=== PATIENT | female | born 1955 | race Caucasian/White ===

== ENCOUNTER 2017-07-12 12:47 | Emergency (ER) | payer OTHER ==
[2017-07-12 13:17] VITALS: BP 132/62; PULSE 93; RESP 16; TEMP 97.5
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
--- NOTE | 2017-07-12 14:14 | XR ---
EXAMINATION TYPE: XR ribs LT , 4 VIEWS DATE OF EXAM ORDERED: 07/12/2017 HISTORY: Pain. COMPARISON: None. FINDINGS: No displaced rib fracture is identified. The underlying lung appears unremarkable. There i s no evidence of pneumothorax. IMPRESSION: I DO NOT IDENTIFY A DISPLACED RIB FRACTURE AT THIS TIME.
== END 2017-07-12 14:05 | disposition home or self-care (01) ==
LOC: EC 12:47
DX: S20.212A Contusion of left front wall of thorax, initial encounter (principal); F17.200 Nicotine dependence, unspecified, uncomplicated; Z88.0 Allergy status to penicillin; V48.5XXA Car driver injured in noncollision transport accident in traffic accident, initial encounter; Y92.096 Garden or yard of other non-institutional residence as the place of occurrence of the external cause
CPT/HCPCS: 99283

== ENCOUNTER → 2020-04-14 | Outpatient (CLI) | payer OTHER ==
--- NOTE | 2020-04-14 15:14 | US ---
EXAMINATION TYPE: US duplex aorta DATE OF EXAM: 04/14/2020 COMPARISON: NONE CLINICAL HISTORY: R10.9 Abdomen pain. EXAM MEASUREMENTS: Abdominal Aorta: Proximal: 1.8 x 2.1 x 1.9 cm Mid: 1.7 x 1.6 x 1.4 cm Distal: 1.8 x 1.7 x 2.0 cm Bifurcation: Right: 0.7 x 0.7 x 0.8 cm Left: 0.7 x 0.6 x 0.9 cm No sonographic evidence for AAA on this exam. Atherosclerotic changes IMPRESSION: 1. No suspicious aneurysmal dilatation abdominal aorta
== END | disposition home or self-care (01) ==
LOC: RADUSWWP 14:31
PROVIDERS: ATTEND Family Medicine
DX: R10.9 Unspecified abdominal pain (principal)
CPT/HCPCS: 93979

== ENCOUNTER 2020-04-22 08:56 | Emergency (ER) | payer OTHER ==
[2020-04-22 09:05] VITALS: RESP 18
[2020-04-22] MEDS ORDERED: FAMOTIDINE 20 MG/2 ML VIAL IV STA (09:23)
[2020-04-22] MEDS ORDERED: ONDANSETRON 4 MG/2 ML VIAL IVP STA (09:23)
[2020-04-22] MEDS ORDERED: SODIUM CHLORIDE 0.9% 1,000 ML IV STA (09:23)
[2020-04-22] MEDS ORDERED: DICYCLOMINE 10 MG/ML 2 ML AMP IM STA (09:23)
--- NOTE | 2020-04-22 09:26 | ED ---
General Adult HPI - General Chief complaint: Abdominal Pain Stated complaint: abd pain Time Seen by Provider: 04/22/20 09:05 Source: patient, RN notes reviewed Mode of arrival: ambulatory Limitations: no limitations - History of Present Illness Initial comments: Patient is a pleasant 64-year-old female presenting to the emergency department complaints of abdominal discomfort. Onset of symptoms was a couple of weeks ago. She does have progressively worsened. Symptoms are at times positional. Discomfort is now more upper abdomen. Previously it had been also lower abdomen. Patient has decreased appetite and some nausea. No vomiting. Some decreased amount of bowel movements however does not feel constipated and bowel movements have been soft. Patient believes this is from decreased oral intake. No fevers. No urinary symptoms. Symptoms seem a little bit better when standing upright and a little bit worse with lying down. Food does not seem to make symptoms worse. No history of similar symptoms previous see. Patient did see her primary care physician and did have the ultrasound done of her aorta which was reported to her as normal. - Related Data Home Medications Medication Instructions Recorded Confirmed Atorvastatin Calcium [Lipitor] 80 mg PO HS 04/22/20 04/22/20 Omeprazole 20 mg PO DAILY 04/22/20 04/22/20 hydroCHLOROthiazide [Hydrodiuril] 12.5 mg PO DAILY 04/22/20 04/22/20 lisinopriL [Zestril] 10 mg PO DAILY 04/22/20 04/22/20 Previous Rx's Medication Instructions Recorded Metoclopramide HCl [Reglan] 10 mg PO Q6HR PRN #15 tablet 04/22/20 Allergies Allergy/AdvReac Type Severity Reaction Status Date / Time Penicillins Allergy Unknown Verified 04/22/20 10:31 aspirin AdvReac Nausea & Verified 04/22/20 10:31 Vomiting Review of Systems ROS Statement: Those systems with pertinent positive or pertinent negative responses have been documented in the HPI. ROS Other: All systems not noted in ROS Statement are negative. Constitutional: Denies: fever Eyes: Denies: eye pain ENT: Denies: ear pain Respiratory: Denies: cough, dyspnea Cardiovascular: Denies: chest pain Endocrine: Denies: fatigue Gastrointestinal: Reports: abdominal pain. Denies: vomiting, diarrhea Genitourinary: Denies: dysuria Musculoskeletal: Denies: back pain Skin: Denies: rash Neurological: Denies: weakness Past Medical History Past Medical History: Hyperlipidemia, Hypertension History of Any Multi-Drug Resistant Organisms: None Reported Past Surgical History: No Surgical Hx Reported Past Psychological History: Anxiety, Depression Smoking Status: Current every day smoker Past Alcohol Use History: None Reported Past Drug Use History: None Reported General Exam Limitations: no limitations General appearance: alert, in no apparent distress Head exam: Present: normocephalic Eye exam: Present: normal appearance Neck exam: Present: normal inspection Respiratory exam: Present: normal lung sounds bilaterally Cardiovascular Exam: Present: regular rate, normal rhythm Expanded Peripheral pulses: 2+: Posterior Tibialis (R), Posterior Tibialis (L) GI/Abdominal exam: Present: soft, tenderness (Mild to moderate tenderness of upper abdomen), normal bowel sounds. Absent: distended, guarding, rebound, rigid, pulsatile mass Extremities exam: Present: normal inspection. Absent: pedal edema, calf tenderness Neurological exam: Present: alert Psychiatric exam: Present: normal affect, normal mood Skin exam: Present: normal color Course Vital Signs 04/22/20 09:00 Temperature 97.5 F L Pulse Rate 97 Respiratory 18 Rate Blood Pressure 152/82 O2 Sat by Pulse 98 Oximetry Medical Decision Making - Medical Decision Making Patient reevaluated and improved following medications. Patient updated on results and need for follow-up. - Lab Data Result diagrams: 04/22/20 09:44 04/22/20 09:44 Lab Results 04/22/20 04/22/20 04/22/20 Range/Units 09:44 09:44 09:44 WBC 6.1 (3.8-10.6) k/uL RBC 4.86 (3.80-5.40) m/uL Hgb 14.6 (11.4-16.0) gm/dL Hct 45.0 (34.0-46.0) % MCV 92.8 (80.0-100.0) fL MCH 30.0 (25.0-35.0) pg MCHC 32.3 (31.0-37.0) g/dL RDW 13.0 (11.5-15.5) % Plt Count 224 (150-450) k/uL Neutrophils % 71 % Lymphocytes % 19 % Monocytes % 7 % Eosinophils % 1 % Basophils % 1 % Neutrophils # 4.3 (1.3-7.7) k/uL Lymphocytes # 1.2 (1.0-4.8) k/uL Monocytes # 0.4 (0-1.0) k/uL Eosinophils # 0.0 (0-0.7) k/uL Basophils # 0.0 (0-0.2) k/uL PT 10.2 (9.0-12.0) sec INR 1.0 (<1.2) APTT 25.1 (22.0-30.0) sec Sodium (137-145) mmol/L Potassium (3.5-5.1) mmol/L Chloride (98-107) mmol/L Carbon Dioxide (22-30) mmol/L Anion Gap mmol/L BUN (7-17) mg/dL Creatinine (0.52-1.04) mg/dL Est GFR (CKD-EPI)AfAm (>60 ml/min/1.73 sqM) Est GFR (CKD-EPI)NonAf (>60 ml/min/1.73 sqM) Glucose (74-99) mg/dL Calcium (8.4-10.2) mg/dL Total Bilirubin (0.2-1.3) mg/dL AST (14-36) U/L ALT (4-34) U/L Alkaline Phosphatase (38-126) U/L Troponin I (0.000-0.034) ng/mL Total Protein (6.3-8.2) g/dL Albumin (3.5-5.0) g/dL Amylase (30-110) U/L Lipase (23-300) U/L Urine Color Yellow Urine Appearance Clear (Clear) Urine pH 6.0 (5.0-8.0) Ur Specific [place] 1.015 (1.001-1.035) Urine Protein Negative (Negative) Urine Glucose (UA) Negative (Negative) Urine Ketones 1+ H (Negative) Urine Blood Small H (Negative) Urine Nitrite Negative (Negative) Urine Bilirubin Negative (Negative) Urine Urobilinogen 2.0 (<2.0) mg/dL Ur Leukocyte Esterase Negative (Negative) Urine RBC 3 (0-5) /hpf Urine WBC 1 (0-5) /hpf Ur Squamous Epith Cells 1 (0-4) /hpf Urine Bacteria Rare H (None) /hpf Hyaline Casts 3 H (0-2) /lpf Urine Mucus Occasional H (None) /hpf 04/22/20 04/22/20 Range/Units 09:44 09:44 WBC (3.8-10.6) k/uL RBC (3.80-5.40) m/uL Hgb (11.4-16.0) gm/dL Hct (34.0-46.0) % MCV (80.0-100.0) fL MCH (25.0-35.0) pg MCHC (31.0-37.0) g/dL RDW (11.5-15.5) % Plt Count (150-450) k/uL Neutrophils % % Lymphocytes % % Monocytes % % Eosinophils % % Basophils % % Neutrophils # (1.3-7.7) k/uL Lymphocytes # (1.0-4.8) k/uL Monocytes # (0-1.0) k/uL Eosinophils # (0-0.7) k/uL Basophils # (0-0.2) k/uL PT (9.0-12.0) sec INR (<1.2) APTT (22.0-30.0) sec Sodium 135 L (137-145) mmol/L Potassium 4.4 (3.5-5.1) mmol/L Chloride 102 (98-107) mmol/L Carbon Dioxide 23 (22-30) mmol/L Anion Gap 10 mmol/L BUN 13 (7-17) mg/dL Creatinine 0.84 (0.52-1.04) mg/dL Est GFR (CKD-EPI)AfAm 85 (>60 ml/min/1.73 sqM) Est GFR (CKD-EPI)NonAf 74 (>60 ml/min/1.73 sqM) Glucose 125 H (74-99) mg/dL Calcium 9.5 (8.4-10.2) mg/dL Total Bilirubin 1.4 H (0.2-1.3) mg/dL AST 34 (14-36) U/L ALT 15 (4-34) U/L Alkaline Phosphatase 83 (38-126) U/L Troponin I <0.012 (0.000-0.034) ng/mL Total Protein 7.8 (6.3-8.2) g/dL Albumin 4.6 (3.5-5.0) g/dL Amylase 57 (30-110) U/L Lipase 171 (23-300) U/L Urine Color Urine Appearance (Clear) Urine pH (5.0-8.0) Ur Specific [place] (1.001-1.035) Urine Protein (Negative) Urine Glucose (UA) (Negative) Urine Ketones (Negative) Urine Blood (Negative) Urine Nitrite (Negative) Urine Bilirubin (Negative) Urine Urobilinogen (<2.0) mg/dL Ur Leukocyte Esterase (Negative) Urine RBC (0-5) /hpf Urine WBC (0-5) /hpf Ur Squamous Epith Cells (0-4) /hpf Urine Bacteria (None) /hpf Hyaline Casts (0-2) /lpf Urine Mucus (None) /hpf - Radiology Data Radiology results: report reviewed (Computed tomography scan of the abdomen and pelvis reveals no acute process) Disposition Clinical Impression: Abdominal pain Disposition: HOME SELF-CARE Condition: Stable Instructions (If sedation given, give patient instructions): Abdominal Pain (ED) Additional Instructions: Please follow-up with primary care physician in the beginning of the week. Co nsider upper scope, EGD. Continue medication prescribed. Additional medications sent to [facility] pharmacy. Return for increased pain, fevers, not tolerating oral intake, worsening symptoms or other concerns. Prescriptions: Metoclopramide HCl [Reglan] 10 mg PO Q6HR PRN #15 tablet PRN Reason: Nausea Is patient prescribed a controlled substance at d/c from ED?: No Referrals: Harrison Hutchins DO [Primary Care Provider] - 1-2 days Time of Disposition: 11:03
[2020-04-22 10:00] LABS: Albumin 4.6 g/dL (3.5-5.0); Calcium 9.5 mg/dL (8.4-10.2); Total Bilirubin 1.4 mg/dL (0.2-1.3); Total Protein 7.8 g/dL (6.3-8.2)
[2020-04-22 10:06] LABS: Potassium 4.4 mmol/L (3.5-5.1)
[2020-04-22 10:13] LABS: Basophils % (A) 1 %; Eosinophils % (A) 1 %; HGB 14.6 gm/dL (11.4-16.0); Lymphocytes # (A) 1.2 k/uL (1.0-4.8); Lymphocytes % (A) 19 %; MCHC 32.3 g/dL (31.0-37.0); MCV 92.8 fL (80.0-100.0); Mean Platelet Volume 8.5; Monocytes # (A) 0.4 k/uL (0-1.0); Monocytes % (A) 7 %; Neutrophils # (A) 4.3 k/uL (1.3-7.7); Neutrophils % (A) 71 %; Platelet Count 224 k/uL (150-450); RBC 4.86 m/uL (3.80-5.40); WBC 6.1 k/uL (3.8-10.6)
[2020-04-22 10:17] LABS: Partial Thromboplastin Time 25.1 sec (22.0-30.0); Prothrombin Time 10.2 sec (9.0-12.0)
[2020-04-22 10:24] LABS: Appearance,Urine Clear (Clear); Bacteria,Urine Rare /hpf; Bilirubin,Urine Negative (Negative); Blood,Urine Small (Negative); Color,Urine Yellow; Glucose,Urine (UA) Negative (Negative); Hyaline Casts,Urine 3 /lpf (0-2); Ketones,Urine 1+ (Negative); Leukocyte Esterase,Urine Negative (Negative); Mucus,Urine Occasional /hpf; Nitrite,Urine Negative (Negative); Protein,Urine Negative (Negative); RBC,Urine 3 /hpf (0-5); Specific Gravity,Urine 1.015 (1.001-1.035); Squamous Epithelial Cell,Urine 1 /hpf (0-4); WBC,Urine 1 /hpf (0-5)
--- NOTE | 2020-04-22 10:40 | CT ---
EXAMINATION TYPE: CT abdomen pelvis w con DATE OF EXAM: 04/22/2020 COMPARISON: None HISTORY: pain CT DLP: 753.4 mGycm Automated exposure control for dose reduction was used. TECHNIQUE: Helical acquisition of images was performed from the lung bases through the pelvis. CONTRAST: Performed without Oral Contrast and with IV Contrast, patient injected with 100 mL of Isovue 300. FINDINGS: LUNG BASES: Linear atelectasis of the right middle lobe. Otherwise normal. LIVER: Fatty liver. BILIARY SYSTEM: Normal. PANCREAS: Normal. SPLEEN: Normal. ADRENALS: Normal. KIDNEYS: Normal. BOWEL: No obstruction or thickening. Normal appendix. PERITONEUM: No pneumoperitoneum. No free fluid. LYMPH NODES: No lymphadenopathy. PELVIS: Nondistended urinary bladder. Normal uterus and adnexa. VASCULATURE: No abdominal aortic aneurysm. MUSCULOSKELETAL: No aggressive osseous destructive lesions. Sacralization of L5. IMPRESSION: 1. Fatty liver. 2. Otherwise no acute abdominopelvic findings to explain patient's abdominal pain.
[2020-04-22 11:30] VITALS: BP 150/82; PULSE 82; TEMP 97.2
== END 2020-04-22 11:07 | disposition home or self-care (01) ==
LOC: EC 08:56
DX: R10.9 Unspecified abdominal pain (principal); R11.0 Nausea; E78.5 Hyperlipidemia, unspecified; I10 Essential (primary) hypertension; F17.200 Nicotine dependence, unspecified, uncomplicated; Z79.899 Other long term (current) drug therapy; Z88.0 Allergy status to penicillin; Z88.6 Allergy status to analgesic agent
CPT/HCPCS: 36415; 80053; 82150; 83690; 84484; 85025; 85610; 85730; 81001; 74177; 99284; 96374; 96375; 96361; 96372; J0500; J2405; Q9967

== ENCOUNTER 2020-06-14 09:45 | Day surgery (SDC) | payer OTHER ==
[2020-06-12 17:20] VITALS: BMI 22.1
[~2020-06-14 09:45] MED LIST: LACTATED RINGERS 1,000 ML IV SCH
[2020-06-14 10:05] VITALS: TEMP 97.8
[2020-06-14] MEDS ORDERED: LACTATED RINGERS 1,000 ML IV ONE (10:05)
[2020-06-14] MEDS ORDERED: LIDOCAINE 1% (10MG/ML) FOR IV START INTRADERMA ONE (10:06)
[2020-06-14] MEDS ORDERED: LIDOCAINE 1% INJ 10MG/ML (20 ML MDV) ONE (10:44)
[2020-06-14] MEDS ORDERED: PROPOFOL 10 MG/ML 20 ML VIAL IV ONE (10:44)
--- NOTE | 2020-06-14 11:06 | P.PCN ---
Date of Procedure: 06/14/20 Procedure(s) Performed: Brief history: Patient is a pleasant 64-year-old pleasant white female scheduled for an elective upper endoscopy as well as colonoscopy as a part of evaluation of GERD and left-sided abdominal pain, change in bowel habits for the last 2 months duration. Procedure performed: Esophagogastroduodenoscopy biopsy Colonoscopy snare polypectomy Preoperative diagnosis: GERD History of abdominal pain and change in bowel habits Anesthesia: MAC Procedure: After informed consent was obtained from the patient was brought into the endoscopy unit and IV sedation was administered by anesthesia under continuous monitoring. Initially upper endoscopy was done. The Olympus GF 160 video endoscope was inserted inserted into the mouth and esophagus intubated without any difficulty and was gradually advanced into the stomach and duodenum and carefully examined. The bulb and second part of the duodenum appeared normal. Biopsies were done from the duodenum to rule out celiac The scope was then withdrawn into the stomach adequately insufflated with air and upon careful examination the antrum had mild gastritis and biopsies were done from this area. The body, cardia and fundus appeared normal. The scope was then withdrawn into the esophagus. The GE junction was located at 40 cm to the incisors. It appeared irregular with no erythema erosions or ulcerations. biopsies were done from the distal esophagus.Rest of the esophagus appeared normal. Patient tolerated the procedure well. At this time the patient continued to remain sedation. Initial digital rectal examination was normal. Olympus CF 160 video colonoscope was then inserted into the rectum and gradually advanced to the cecum without any difficulty. Careful examination was performed as the scope was gradually being withdrawn. The prep was excellent. The cecum, ascending colon, transverse colon, descending colon, sigmoid colon and rectum appeared normal. The distal rectum there was a 7 mm polyp removed by snare polypectomy. Scattered sigmoid diverticulosis seen. Retroflexion was performed in the rectum and no lesions were noted. Patient tolerated the procedure well. Impression: 1. Upper Endoscopy revealed mild antral gastritis but no evidence of esophagitis or peptic ulcer disease 2. Colonoscopy revealed a 7 mm distal rectal polyp status post polypectomy and scattered sigmoid diverticulosis Recommendations: Findings of this examination were discussed with the patient as well as her family. She was advised to follow with the biopsy results. If the biopsy biopsy reveals tubular adenoma she can have a repeat colonoscopy in 5 years
[2020-06-14 11:18] VITALS: RESP 16
[2020-06-14 11:30] VITALS: BP 120/69; PULSE 70
== END 2020-06-14 12:06 | disposition home or self-care (01) ==
LOC: ORWHC2ENDO 09:45
PROVIDERS: ATTEND Internal Medicine Gastroenterology
DX: D12.8 Benign neoplasm of rectum (principal); K57.30 Diverticulosis of large intestine without perforation or abscess without bleeding; K29.70 Gastritis, unspecified, without bleeding; I10 Essential (primary) hypertension; E78.5 Hyperlipidemia, unspecified; F17.210 Nicotine dependence, cigarettes, uncomplicated; K21.9 Gastro-esophageal reflux disease without esophagitis; Z88.0 Allergy status to penicillin; Z88.6 Allergy status to analgesic agent; Z79.899 Other long term (current) drug therapy
CPT/HCPCS: 88305; 45385; 43239; J2001; J2704

== ENCOUNTER 2021-04-07 09:28 | Emergency (ER) | payer OTHER ==
[2021-04-07 09:42] VITALS: TEMP 98.5
[2021-04-07] MEDS ORDERED: ONDANSETRON 4 MG/2 ML VIAL IVP STA (10:13)
[2021-04-07] MEDS ORDERED: KETOROLAC 15 MG/ML 1 ML VIAL IVP STA (10:13)
[2021-04-07] MEDS ORDERED: PANTOPRAZOLE 40 MG/10 ML VIAL IVP STA (10:13)
[2021-04-07] MEDS ORDERED: SODIUM CHLORIDE 0.9% 1,000 ML IV STA (10:13)
--- NOTE | 2021-04-07 10:49 | ED ---
Abdominal Pain HPI - General Source: patient, RN notes reviewed, old records reviewed Mode of arrival: ambulatory Limitations: no limitations <Peri Simpson - Last Filed: 04/07/21 13:40> <Allen Khanah Jim - Last Filed: 04/09/21 01:12> - General Chief Complaint: Abdominal Pain Stated Complaint: Abdominal Pain Time Seen by Provider: 04/07/21 09:50 - History of Present Illness Initial Comments: Patient's a 65-year-old female who presents to the emergency department with intermittent abdominal pain for the past year. She reports that she seems to have episodes of abdominal pain associated 3 hours after eating. She is trying elimination diet. She reports that the pain usually will radiate to the left lower quadrant. She came to the emergency department today due to episodes of severe right-sided abdominal pains last night. She reports it felt like her intestines were to "burst". Patient states that she has associated nausea. She did have 2 soft and normal bowel movements this morning. Patient is a smoker. She reports that she's had fluctuations of weight loss due to his abdominal pain and inability to eat. Patient denies any previous abdominal surgeries. (Peri Simpson) - Related Data Home Medications Medication Instructions Recorded Confirmed Atorvastatin Calcium [Lipitor] 40 mg PO HS 04/22/20 06/12/20 Omeprazole 20 mg PO DAILY 04/22/20 06/12/20 hydroCHLOROthiazide [Hydrodiuril] 12.5 mg PO DAILY 04/22/20 06/12/20 lisinopriL [Zestril] 10 mg PO DAILY 04/22/20 06/12/20 ALPRAZolam [Xanax] 0.25 mg PO DAILY PRN 06/12/20 06/12/20 Docusate [Colace] 100 mg PO DAILY PRN 06/12/20 06/12/20 Famotidine [Pepcid] 20 mg PO DAILY PRN 06/12/20 06/12/20 Sertraline [Zoloft] 100 mg PO DAILY PRN 06/12/20 06/12/20 Allergies Allergy/AdvReac Type Severity Reaction Status Date / Time Penicillins Allergy Unknown Verified 04/07/21 09:42 aspirin AdvReac Nausea & Verified 04/07/21 09:42 Vomiting Review of Systems ROS Other: All systems not noted in ROS Statement are negative. <Peri Simpson - Last Filed: 04/07/21 13:40> ROS Other: All systems not noted in ROS Statement are negative. <Sheridan Khan - Last Filed: 04/09/21 01:12> ROS Statement: Those systems with pertinent positive or pertinent negative responses have been documented in the HPI. Past Medical History Past Medical History: GERD/Reflux, Hyperlipidemia, Hypertension Additional Past Medical History / Comment(s): abd. pain, diverticulosis History of Any Multi-Drug Resistant Organisms: None Reported Past Surgical History: No Surgical Hx Reported Additional Past Surgical History / Comment(s): wisdom teeth removed Past Anesthesia/Blood Transfusion Reactions: No Reported Reaction Past Psychological History: Anxiety, Depression Smoking Status: Current every day smoker Past Alcohol Use History: Occasional Past Drug Use History: None Reported <Peri Simpson - Last Filed: 04/07/21 13:40> General Exam Limitations: no limitations General appearance: alert, in no apparent distress Head exam: Present: atraumatic, normocephalic, normal inspection Eye exam: Present: normal appearance, PERRL, EOMI. Absent: scleral icterus, conjunctival injection, periorbital swelling ENT exam: Present: normal exam, mucous membranes moist Neck exam: Present: normal inspection. Absent: tenderness, meningismus, lymphadenopathy Respiratory exam: Present: normal lung sounds bilaterally. Absent: respiratory distress, wheezes, rales, rhonchi, stridor Cardiovascular Exam: Present: regular rate, normal rhythm, normal heart sounds. Absent: systolic murmur, diastolic murmur, rubs, gallop, clicks GI/Abdominal exam: Present: soft, tenderness (epigastric tenderness to RLQ and RUQ ), normal bowel sounds. Absent: distended, guarding, rebound, rigid Extremities exam: Present: normal inspection, full ROM, normal capillary refill. Absent: tenderness, pedal edema, joint swelling, calf tenderness Back exam: Present: normal inspection Neurological exam: Present: alert, oriented X3, CN II-XII intact Psychiatric exam: Present: normal affect, normal mood Skin exam: Present: warm, dry, intact, normal color. Absent: rash <CalvinPeri - Last Filed: 04/07/21 13:40> - General Exam Comments Initial Comments: Pleasant alert and oriented 65-year-old female. No significant distress. ( Peri Simpson) Course Vital Signs 04/07/21 04/07/21 04/07/21 09:40 11:46 13:38 Temperature 98.5 F Pulse Rate 88 69 65 Respiratory 18 18 16 Rate Blood Pressure 162/76 157/72 150/75 O2 Sat by Pulse 100 100 99 Oximetry 04/07/21 13:56 Temperature 98.5 F Pulse Rate 65 Respiratory 16 Rate Blood Pressure 150/75 O2 Sat by Pulse 99 Oximetry Medical Decision Making - Lab Data Result diagrams: 04/07/21 11:19 04/07/21 11:19 - Radiology Data Radiology results: report reviewed <Peri Simpson - Last Filed: 04/07/21 13:40> - Lab Data Result diagrams: 04/07/21 11:19 04/07/21 11:19 <Sheridan Khan - Last Filed: 04/09/21 01:12> - Medical Decision Making 65-year-old female presents with chronic abdominal pain. She reports it's been intermittent for the past year. She reports most likely seemed to be acutely worse in the right lower quadrant. At this time vital signs are stable. Labs reviewed and did show mild leukocytosis. Due to tenderness on exam computed tomography scan was completed. Patient CT she is on small nonspecific small bowel thickening. No other acute processes noted. Patient discharged advised up with primary care doctor possible surgeon GI specialist. All questions answered. (Peri Simpson) I was available for consultation in the emergency department. The history and physical exam were done by the midlevel provider. I was consulted for this patients care. I reviewed the case with the midlevel provider and based on their presentation of the patient, I agree with the assessment, medical decision making and plan of care as documented. Chart was dictated using [employer] dictation software. Attempts were made to correct any dictation errors however some typographical errors may persist. (Sheridan Khan) - Lab Data Lab Results 04/07/21 04/07/21 04/07/21 Range/Units 11:19 11:19 11:19 WBC 13.3 H (3.8-10.6) k/uL RBC 4.67 (3.80-5.40) m/uL Hgb 14.4 (11.4-16.0) gm/dL Hct 43.2 (34.0-46.0) % MCV 92.4 (80.0-100.0) fL MCH 30.9 (25.0-35.0) pg MCHC 33.4 (31.0-37.0) g/dL RDW 12.9 (11.5-15.5) % Plt Count 231 (150-450) k/uL MPV 7.7 Neutrophils % 86 % Lymphocytes % 9 % Monocytes % 3 % Eosinophils % 1 % Basophils % 0 % Neutrophils # 11.5 H (1.3-7.7) k/uL Lymphocytes # 1.2 (1.0-4.8) k/uL Monocytes # 0.4 (0-1.0) k/uL Eosinophils # 0.1 (0-0.7) k/uL Basophils # 0.1 (0-0.2) k/uL PT 10.2 (9.0-12.0) sec INR 0.9 (<1.2) APTT 31.4 H (22.0-30.0) sec Sodium 138 (137-145) mmol/L Potassium 3.7 (3.5-5.1) mmol/L Chloride 102 (98-107) mmol/L Carbon Dioxide 28 (22-30) mmol/L Anion Gap 8 mmol/L BUN 13 (7-17) mg/dL Creatinine 0.77 (0.52-1.04) mg/dL Est GFR (CKD-EPI)AfAm >90 (>60 ml/min/1.73 sqM) Est GFR (CKD-EPI)NonAf 81 (>60 ml/min/1.73 sqM) Glucose 105 H (74-99) mg/dL Calcium 9.8 (8.4-10.2) mg/dL Total Bilirubin 1.0 (0.2-1.3) mg/dL AST 29 (14-36) U/L ALT 18 (4-34) U/L Alkaline Phosphatase 106 (38-126) U/L Total Protein 7.3 (6.3-8.2) g/dL Albumin 4.2 (3.5-5.0) g/dL Amylase 74 (30-110) U/L Lipase 172 (23-300) U/L Urine Color Urine Appearance (Clear) Urine pH (5.0-8.0) Ur Specific [place] (1.001-1.035) Urine Protein (Negative) Urine Glucose (UA) (Negative) Urine Ketones (Negative) Urine Blood (Negative) Urine Nitrite (Negative) Urine Bilirubin (Negative) Urine Urobilinogen (<2.0) mg/dL Ur Leukocyte Esterase (Negative) 04/07/21 Range/Units 11:46 WBC (3.8-10.6) k/uL RBC (3.80-5.40) m/uL Hgb (11.4-16.0) gm/dL Hct (34.0-46.0) % MCV (80.0-100.0) fL MCH (25.0-35.0) pg MCHC (31.0-37.0) g/dL RDW (11.5-15.5) % Plt Count (150-450) k/uL MPV Neutrophils % % Lymphocytes % % Monocytes % % Eosinophils % % Basophils % % Neutrophils # (1.3-7.7) k/uL Lymphocytes # (1.0-4.8) k/uL Monocytes # (0-1.0) k/uL Eosinophils # (0-0.7) k/uL Basophils # (0-0.2) k/uL PT (9.0-12.0) sec INR (<1.2) APTT (22.0-30.0) sec Sodium (137-145) mmol/L Potassium (3.5-5.1) mmol/L Chloride (98-107) mmol/L Carbon Dioxide (22-30) mmol/L Anion Gap mmol/L BUN (7-17) mg/dL Creatinine (0.52-1.04) mg/dL Est GFR (CKD-EPI)AfAm (>60 ml/min/1.73 sqM) Est GFR (CKD-EPI)NonAf (>60 ml/min/1.73 sqM) Glucose (74-99) mg/dL Calcium (8.4-10.2) mg/dL Total Bilirubin (0.2-1.3) mg/dL AST (14-36) U/L ALT (4-34) U/L Alkaline Phosphatase (38-126) U/L Total Protein (6.3-8.2) g/dL Albumin (3.5-5.0) g/dL Amylase (30-110) U/L Lipase (23-300) U/L Urine Color Light Yellow Urine Appearance Clear (Clear) Urine pH 7.0 (5.0-8.0) Ur Specific [place] 1.007 (1.001-1.035) Urine Protein Negative (Negative) Urine Glucose (UA) Negative (Negative) Urine Ketones Negative (Negative) Urine Blood Negative (Negative) Urine Nitrite Negative (Negative) Urine Bilirubin Negative (Negative) Urine Urobilinogen <2.0 (<2.0) mg/dL Ur Leukocyte Esterase Negative (Negative) - Radiology Data Nonspecific small bowel full thickening seen and limited areas. Findings similar to prior exam for hepatic steatosis or hepatocellular disease. (Peri Simpson) Disposition Is patient prescribed a controlled substance at d/c from ED?: No Time of Disposition: 13:42 <Peri Simpson - Last Filed: 04/07/21 13:40> <Sheridan Khan - Last Filed: 04/09/21 01:12> Clinical Impression: Chronic abdominal pain Disposition: HOME SELF-CARE Condition: Good Instructions (If sedation given, give patient instructions): Abdominal Pain (ED) Additional Instructions: Recommend following up with her primary care physician and GI specialist for possible further testing. Patient should have a bland diet as you have continued to have. Take anti-inflammatory medication for pain. There is any fever or worsening signs or symptoms you can always return to the ER for reevaluation. Referrals: Harrison Hutchins DO [Primary Care Provider] - 1-2 days
[2021-04-07 11:29] LABS: Basophils # (A) 0.1 k/uL (0-0.2); Basophils % (A) 0 %; Eosinophils # (A) 0.1 k/uL (0-0.7); Eosinophils % (A) 1 %; HCT 43.2 % (34.0-46.0); HGB 14.4 gm/dL (11.4-16.0); Lymphocytes # (A) 1.2 k/uL (1.0-4.8); Lymphocytes % (A) 9 %; MCH 30.9 pg (25.0-35.0); MCHC 33.4 g/dL (31.0-37.0); MCV 92.4 fL (80.0-100.0); Mean Platelet Volume 7.7; Monocytes # (A) 0.4 k/uL (0-1.0); Monocytes % (A) 3 %; Neutrophils # (A) 11.5 k/uL (1.3-7.7); Neutrophils % (A) 86 %; Platelet Count 231 k/uL (150-450); RBC 4.67 m/uL (3.80-5.40); RDW 12.9 % (11.5-15.5); WBC 13.3 k/uL (3.8-10.6)
[2021-04-07 11:39] LABS: ALT 18 U/L (4-34); AST 29 U/L (14-36); African American GFR (CKD) >90 (>60 ml/min/1.73 sqM); Albumin 4.2 g/dL (3.5-5.0); Alkaline Phosphatase 106 U/L (38-126); Amylase 74 U/L (30-110); Anion Gap 8 mmol/L; Blood Urea Nitrogen 13 mg/dL (7-17); Calcium 9.8 mg/dL (8.4-10.2); Carbon Dioxide 28 mmol/L (22-30); Chloride 102 mmol/L (98-107); Glucose 105 mg/dL (74-99); Lipase 172 U/L (23-300); Non-African American GFR(CKD) 81 (>60 ml/min/1.73 sqM); Potassium 3.7 mmol/L (3.5-5.1); Sodium 138 mmol/L (137-145); Total Protein 7.3 g/dL (6.3-8.2)
[2021-04-07 11:59] LABS: INR 0.9 (<1.2); Partial Thromboplastin Time 31.4 sec (22.0-30.0); Prothrombin Time 10.2 sec (9.0-12.0)
[2021-04-07 12:03] LABS: Appearance,Urine Clear (Clear); Bilirubin,Urine Negative (Negative); Blood,Urine Negative (Negative); Color,Urine Light Yellow; Glucose,Urine (UA) Negative (Negative); Ketones,Urine Negative (Negative); Leukocyte Esterase,Urine Negative (Negative); Nitrite,Urine Negative (Negative); Protein,Urine Negative (Negative); Specific Gravity,Urine 1.007 (1.001-1.035); Urobilinogen,Urine <2.0 mg/dL (<2.0)
--- NOTE | 2021-04-07 13:33 | CT ---
EXAMINATION TYPE: CT abdomen pelvis w con DATE OF EXAM: 04/07/2021 COMPARISON: CT 04/22/2020 HISTORY: Mid to left sided flank pain on and off for a year with unexplained weight loss CT DLP: 613.2 mGycm Automated exposure control for dose reduction was used. TECHNIQUE: Helical acquisition of images from the lung bases through the pelvis have been completed. CONTRAST: Performed without Oral Contrast and with IV Contrast, patient injected with 100 mL of Isovue 300. FINDINGS: LUNG BASES: Some dependent atelectatic changes are present at the posterior lung bases. AORTA: No significant abnormality is appreciated. LIVER/GB: Liver shows low attenuation possibly due to hepatic steatosis, gallbladder is unremarkable. PANCREAS: No significant abnormality is seen. SPLEEN: No significant abnormality is seen. ADRENALS: No significant interval change is seen. KIDNEYS: No significant interval change is seen, extrarenal pelvis again noted on the right. REPRODUCTIVE ORGANS: No significant abnormality is seen BOWEL: Redundant appearance of the colon is present. There is some retained fecal debris predominant ly in the right colon and transverse colon. Some fluid-filled loops of small bowel are noted, some ar eas of small bowel wall thickening are questioned. FREE AIR: No Free Air visible. ASCITES: None visible. PELVIC ADENOPATHY: None visualized. RETROPERITONEAL ADENOPATHY: No Retroperitoneal Adenopathy visible. URINARY BLADDER: No significant abnormality is seen. OSSEOUS STRUCTURES: No significant abnormality is seen. IMPRESSION: NONSPECIFIC SMALL BOWEL FOLD THICKENING SEEN IN LIMITED AREAS. Findings are similar to prior exam, co rrelate for possible hepatic steatosis or hepatocellular disease.
[2021-04-07 13:39] VITALS: BP 150/75; PULSE 65; RESP 16
== END 2021-04-07 13:57 | disposition home or self-care (01) ==
LOC: EC 09:28
DX: R10.31 Right lower quadrant pain (principal); R10.11 Right upper quadrant pain; G89.29 Other chronic pain; I10 Essential (primary) hypertension; E78.5 Hyperlipidemia, unspecified; K21.9 Gastro-esophageal reflux disease without esophagitis; F41.9 Anxiety disorder, unspecified; F32.9 Major depressive disorder, single episode, unspecified; F17.200 Nicotine dependence, unspecified, uncomplicated; Z88.0 Allergy status to penicillin; Z88.6 Allergy status to analgesic agent
CPT/HCPCS: 99284; 96374; 96375 ×2; 96361; 36415; 80053; 82150; 83690; 85025; 85610; 85730; 81003; 74177; J2405; J1885; C9113; Q9967

== ENCOUNTER 2021-05-17 13:36 | Emergency (ER) | payer OTHER ==
[2021-05-17 15:05] VITALS: RESP 18; TEMP 97.7
[2021-05-17] MEDS ORDERED: SODIUM CHLORIDE 0.9% 500 ML 500 ML IV STA (17:41)
--- NOTE | 2021-05-17 17:51 | ED ---
General Adult HPI - General Chief complaint: GI Bleed Stated complaint: Blood in stool Time Seen by Provider: 05/17/21 17:00 Source: patient, RN notes reviewed, old records reviewed Mode of arrival: ambulatory Limitations: no limitations - History of Present Illness Initial comments: This is a 65-year-old female who presents to the emergency department stating that she's had 3 bowel movements today and every time she he had bright red blood. Patient states she was no blood in the toilet and there is no pain with the bowel movement. Patient states she has a history of diverticulitis and diverticulosis. - Related Data Home Medications Medication Instructions Recorded Confirmed Omeprazole 20 mg PO BID PRN 04/22/20 05/17/21 hydroCHLOROthiazide [Hydrodiuril] 12.5 mg PO DAILY 04/22/20 05/17/21 lisinopriL [Zestril] 10 mg PO DAILY 04/22/20 05/17/21 ALPRAZolam [Xanax] 0.125 - 0.25 mg PO DAILY PRN 06/12/20 05/17/21 Sertraline HCl [Zoloft] 25 mg PO DAILY 05/17/21 05/17/21 Allergies Allergy/AdvReac Type Severity Reaction Status Date / Time Penicillins Allergy Unknown Verified 05/17/21 18:27 aspirin AdvReac Nausea & Verified 05/17/21 18:27 Vomiting Review of Systems ROS Statement: Those systems with pertinent positive or pertinent negative responses have been documented in the HPI. ROS Other: All systems not noted in ROS Statement are negative. Past Medical History Past Medical History: GERD/Reflux, Hyperlipidemia, Hypertension Additional Past Medical History / Comment(s): abd. pain, diverticulosis History of Any Multi-Drug Resistant Organisms: None Reported Past Surgical History: No Surgical Hx Reported Additional Past Surgical History / Comment(s): wisdom teeth removed Past Anesthesia/Blood Transfusion Reactions: No Reported Reaction Past Psychological History: Anxiety, Depression Smoking Status: Current every day smoker Past Alcohol Use History: Occasional Past Drug Use History: None Reported General Exam - General Exam Comments Initial Comments: GENERAL: Patient is well-developed and well-nourished. Patient is nontoxic and well-h ydrated and is in no acute distress. ENT: Neck is soft and supple. No significant lymphadenopathy is noted. Oropharynx is clear. Moist mucous membranes. Neck has full range of motion without elic iting any pain. EYES: The sclera were anicteric and conjunctiva were pink and moist. Extraocular movements were intact and pupils were equal round and reactive to light. Eyelids were unremarkable. PULMONARY: Unlabored respirations. Good breath sounds bilaterally. No audible rales rhonchi or wheezing was noted. CARDIOVASCULAR: There is a regular rate and rhythm without any murmurs gallops or rubs. ABDOMEN: Soft and nontender with normal bowel sounds. No palpable organomegaly was noted . There is no palpable pulsatile mass. RECTAL: On rectal exam there was no obvious site of bleeding there was no fissure noted. SKIN: Skin is clear with no lesions or rashes and otherwise unremarkable. NEUROLOGIC: Patient is alert and oriented x3. Cranial nerves II through XII are grossly intact. Motor and sensory are also intact. Normal speech, volume and content. Symmetrical smile. MUSCULOSKELETAL: Normal extremities with adequate strength and full range of motion. LYMPHATICS: No significant lymphadenopathy is noted PSYCHIATRIC: Normal psychiatric evaluation. Limitations: no limitations Course Vital Signs 05/17/21 05/17/21 05/17/21 15:02 17:55 19:01 Temperature 97.7 F Pulse Rate 84 63 68 Respiratory 18 Rate Blood Pressure 181/97 179/89 164/79 O2 Sat by Pulse 99 Oximetry Medical Decision Making - Medical Decision Making I discussed the possibility of staying patient agreed that she would rather follow-up as an outpatient. Hemoglobin was stable vital signs are stable patient had no symptoms while in the emergency department and did have a bowel movement with no blood seen or when she wiped there was no blood as well. - Lab Data Result diagrams: 05/17/21 17:48 05/17/21 17:48 Lab Results 05/17/21 05/17/21 05/17/21 Range/Units 17:48 17:48 17:48 WBC 9.4 (3.8-10.6) k/uL RBC 4.68 (3.80-5.40) m/uL Hgb 14.6 (11.4-16.0) gm/dL Hct 42.3 (34.0-46.0) % MCV 90.3 (80.0-100.0) fL MCH 31.2 (25.0-35.0) pg MCHC 34.6 (31.0-37.0) g/dL RDW 13.6 (11.5-15.5) % Plt Count 301 (150-450) k/uL MPV 7.7 Neutrophils % 73 % Lymphocytes % 19 % Monocytes % 4 % Eosinophils % 1 % Basophils % 1 % Neutrophils # 6.9 (1.3-7.7) k/uL Lymphocytes # 1.8 (1.0-4.8) k/uL Monocytes # 0.4 (0-1.0) k/uL Eosinophils # 0.1 (0-0.7) k/uL Basophils # 0.1 (0-0.2) k/uL PT 10.3 (9.0-12.0) sec INR 1.0 (<1.2) APTT 30.5 H (22.0-30.0) sec Sodium 137 (137-145) mmol/L Potassium 3.7 (3.5-5.1) mmol/L Chloride 100 (98-107) mmol/L Carbon Dioxide 28 (22-30) mmol/L Anion Gap 9 mmol/L BUN 15 (7-17) mg/dL Creatinine 0.76 (0.52-1.04) mg/dL Est GFR (CKD-EPI)AfAm >90 (>60 ml/min/1.73 sqM) Est GFR (CKD-EPI)NonAf 83 (>60 ml/min/1.73 sqM) Glucose 96 (74-99) mg/dL Calcium 10.0 (8.4-10.2) mg/dL Magnesium 1.9 (1.6-2.3) mg/dL Total Bilirubin 0.8 (0.2-1.3) mg/dL AST 27 (14-36) U/L ALT 18 (4-34) U/L Alkaline Phosphatase 102 (38-126) U/L Total Protein 7.9 (6.3-8.2) g/dL Albumin 4.7 (3.5-5.0) g/dL Disposition Clinical Impression: Gastrointestinal hemorrhage Disposition: HOME SELF-CARE Condition: Good Instructions (If sedation given, give patient instructions): Gastrointestinal Bleeding (ED) Additional Instructions: Patient should follow-up with primary medical care doctor in the next couple of days. Patient should return if there is any heavier bleeding, lightheadedness, or shortness of breath. Is patient prescribed a controlled substance at d/c from ED?: No Referrals: Harrison Hutchins DO [Primary Care Provider] - 1-2 days Time of Disposition: 19:03
[2021-05-17 18:04] LABS: Basophils # (A) 0.1 k/uL (0-0.2); Basophils % (A) 1 %; Eosinophils # (A) 0.1 k/uL (0-0.7); Eosinophils % (A) 1 %; HCT 42.3 % (34.0-46.0); HGB 14.6 gm/dL (11.4-16.0); Lymphocytes # (A) 1.8 k/uL (1.0-4.8); Lymphocytes % (A) 19 %; MCH 31.2 pg (25.0-35.0); MCHC 34.6 g/dL (31.0-37.0); MCV 90.3 fL (80.0-100.0); Mean Platelet Volume 7.7; Monocytes # (A) 0.4 k/uL (0-1.0); Monocytes % (A) 4 %; Neutrophils # (A) 6.9 k/uL (1.3-7.7); Neutrophils % (A) 73 %; Platelet Count 301 k/uL (150-450); RBC 4.68 m/uL (3.80-5.40); RDW 13.6 % (11.5-15.5); WBC 9.4 k/uL (3.8-10.6)
[2021-05-17 18:14] LABS: Partial Thromboplastin Time 30.5 sec (22.0-30.0); Prothrombin Time 10.3 sec (9.0-12.0)
[2021-05-17 18:42] LABS: ALT 18 U/L (4-34); AST 27 U/L (14-36); African American GFR (CKD) >90 (>60 ml/min/1.73 sqM); Albumin 4.7 g/dL (3.5-5.0); Alkaline Phosphatase 102 U/L (38-126); Anion Gap 9 mmol/L; Blood Urea Nitrogen 15 mg/dL (7-17); Carbon Dioxide 28 mmol/L (22-30); Chloride 100 mmol/L (98-107); Glucose 96 mg/dL (74-99); Magnesium 1.9 mg/dL (1.6-2.3); Non-African American GFR(CKD) 83 (>60 ml/min/1.73 sqM); Potassium 3.7 mmol/L (3.5-5.1); Sodium 137 mmol/L (137-145); Total Bilirubin 0.8 mg/dL (0.2-1.3); Total Protein 7.9 g/dL (6.3-8.2)
[2021-05-17] MEDS ORDERED: hydrALAZINE HCL 20 MG/ML 1 ML VIAL IVP STA (18:56)
[2021-05-17 19:14] VITALS: BP 165/87; PULSE 78
== END 2021-05-17 19:14 | disposition home or self-care (01) ==
LOC: EC 13:36
DX: K92.2 Gastrointestinal hemorrhage, unspecified (principal); I10 Essential (primary) hypertension; E78.5 Hyperlipidemia, unspecified; K21.9 Gastro-esophageal reflux disease without esophagitis; F32.A Depression, unspecified; F41.9 Anxiety disorder, unspecified; F17.200 Nicotine dependence, unspecified, uncomplicated; Z79.899 Other long term (current) drug therapy
CPT/HCPCS: 36415; 80053; 83735; 85025; 85610; 85730; 99285; 96374; J0360

== ENCOUNTER → 2021-11-09 | Outpatient (CLI) | payer MEDICARE ==
--- NOTE | 2021-11-09 11:50 | XR ---
EXAMINATION TYPE: XR KUB DATE OF EXAM: 11/09/2021 COMPARISON: NONE HISTORY: Pain TECHNIQUE: Single supine KUB image of the abdomen is obtained FINDINGS: Small bowel demonstrates no evidence for dilatation or air fluid levels. Gas and fecal material is seen in non-distended colon. No convincing evidence for pneumoperitoneum. No unusual calcifications. The lung bases are clear. The osseous structures are intact. IMPRESSION: 1. Overall nonobstructive bowel gas pattern.
== END | disposition home or self-care (01) ==
LOC: RADXRMAIN 11:23
PROVIDERS: ATTEND Nurse Practitioner Family
DX: R10.9 Unspecified abdominal pain (principal)
CPT/HCPCS: 74018